=== PATIENT | male | born 1950 | race Caucasian/White ===

== ENCOUNTER 2019-05-30 00:13 | Day surgery (SDC) | payer MEDICARE, SELFPAY ==
[2019-05-17 08:01] VITALS: BP 162/88; PULSE 64; RESP 20; TEMP 36.6; O2SAT 98; BMI 28.7
[2019-05-30] VITALS (12 sets, daily range): BP systolic 123–145; BP diastolic 62–94; PULSE 67–85; RESP 12–20; TEMP 36.3–37.1; O2SAT 93–100
[2019-05-30] MEDS: LACTATED RINGERS 1,000 ML 30 ML IV CONT ×3 (06:35→12:04)
--- NOTE | 2019-05-30 06:57 | P.PNAN_ITS ---
Anes - Initial Pre Proc Eval Procedure: Operation Date: 05/30/19 07:30 Proposed Procedures p Robotic Assisted Radical Retropubic Prostatectomy, Bilateral Pelvic Lymphadenectomy(Bilateral) - Keven Hutchison MD Date/Time: 05/30/19 06:57 Surgeon: Keven Hutchison MD Pre Op Diagnosis: Prostate Ca Patient Data Age: 69 Gender: M Height: 5 ft 11 in Weight: 87.1 kg Last Vital Signs Temp 36.6 C 05/17/19 08:01 Pulse 64 05/17/19 08:01 Resp 20 05/17/19 08:01 BP 162/88 H 05/17/19 08:01 Pulse Ox 98 05/17/19 08:01 Allergies Allergy/AdvReac Type Severity Reaction Status Date / Time Sulfa (Sulfonamide AdvReac Mild Rash Verified 05/30/19 06:24 Antibiotics) tetracycline AdvReac Mild Rash Verified 05/30/19 06:24 Home Medications Medication Instructions Recorded Confirmed Type losartan-hydrochlorothiazide 1 tablet PO DAILY 05/17/19 05/30/19 History omega 3-uel-boj-fish oil [Fish Oil] 2 cap PO DAILY 05/17/19 05/30/19 History simvastatin 10 mg PO HS 05/17/19 05/30/19 History Patient hx anesthesia problems: none Family hx anesthesia problems: none [facility] Past Medical History Medical History (Updated 05/30/19 @ 06:58 by Clinton Heredia MD) Hyperlipidemia Hypertension Prostate CA Recent URI Anes - Eval Final PreProcedure Day of Procedure 05/30/19 06:57 Patient weight: normal Heart: regular rate and rhythm Lungs: clear to auscultation and normal air movement Airway: Mallampati scale class 1 Neurological: alert and oriented Last oral intake: >/= 8 hours ASA classification: III Emergent: no Anesthetic plan: proceed Anesthesia type and monitoring: general ETT and standard monitoring Informed Consent: The patient's anesthetic plan and its attendant risks and benefits were discussed with the patient/family/POA. Questions were solicited and answers provided to the satisfaction of the patient/family/POA.
--- NOTE | 2019-05-30 07:02 | WPDHPUPDATE1 ---
History and Physical Update Update Date/Time: 05/30/19 07:02 History and Physical has been reviewed, including an updated exam of the patient. There are NO changes in the patient's condition. Risks, benefits, and alternatives have been discussed and questions answered. Patient agrees to proceed with procedure.
[2019-05-30] MEDS: ceFAZolin 2 GM/D5W 50 ML 2 GM/50 ML BAG IVPB (07:33)
--- NOTE | 2019-05-30 11:10 | PM.PROC ---
Procedure Note - Detailed Date of procedure: 05/30/19 Pre-op diagnosis: Prostate Ca Post-op diagnosis: same Procedure performed: 1. Bilateral nerve-sparing, robotic-assisted, radical retropubic prostatectomy. 2. Bilataral pelvic lymphadenectomy. Description of procedure: The patient was brought to the operative suite, where he was prepped and draped in routine sterile fashion while in a dorsal lithotomy, deep Trendelenburg position. A supraumbilical 10 mm trocar was placed after insufflation of the abdomen with a Veress needle. Three robotic ports were then placed under direct vision. Two of these were placed in the right lower quadrant - 10 cm and 20 cm lateral to, and in line with, the umbilicus. A third robotic trocar was placed 10 cm to the left of the umbilicus, and 20 cm to the left of the umbilicus, a 12 mm standard laparoscopic trocar was placed to be used as an assistant account manager port. Lastly, a 5 mm trocar was placed in the left upper quadrant midway between the umbilicus and the left robotic trocar. Attention was then turned to the prostatectomy. I opted for a posterior approach in this patient. An incision was made in the parietal peritoneum along the posterior bladder/posterior prostate about 2 cm above the reflection of the peritoneum over the anterior rectum. The seminal vesicles and vas deferens were immediately identified. Dissection is undertaken in a fashion so as to avoid electrocautery as much as possible, particularly near the tips of the seminal vesicles. Dissection was also carried out in the midline so as to avoid any encounters with the ureters. The vas deferens and the seminal vesicles were dissected in their entirety to the base of the prostate. The plane anterior to Denoviller's fascia, anterior to the rectum and posterior to the prostate was then developed. I then dropped the bladder by incising the anterior parietal peritoneum just lateral to the median umbilical ligaments bilaterally. The bladder was dropped from the anterior abdominal and pelvic wall. The endopelvic fascia was identified and incised bilaterally, allowing for dissection of the posterior-lateral aspect of the prostate. The puboprostatic ligaments were transected near their origin from the posterior pubic ramus. This posterior lateral dissection of the prostate is also undertaken in a fashion so as to avoid electrocautery as much as possible. The dorsal vein of the penis is then secured with an 0 -Vicryl ligature. Attention is then turned to the bladder neck. The anterior bladder neck is incised at the vesico-prostatic junction. The previously placed urethral catheter was drawn through the urethrotomy. A very small bladder neck was maintained throughout the remainder of this dissection. The posterior bladder neck was incised in a fashion so as to avoid any injury to the ureteral orifices. Again, the small aperture of the bladder neck was maintained. The previously dissected vas deferens and the seminal vesicles were brought through the posterior bladder neck incision. The lateral prostatic pedicles were then carefully dissected from the lateral aspect of the prostate bilaterally. The prostatic pedicles were secured with Weck clips and transected. The neurovascular bundles were carefully dissected from the posterior-lateral aspect of the prostate. The dorsal vein of the penis was incised with electrocautery. Using cold scissors, the urethra was incised. After withdrawing the previously placed urethral catheter, the posterior urethra was sharply incised, as was the rectalurethralis muscle. Attention was then turned to a bilateral pelvic lymphadenectomy. The limits of this dissection were similar bilaterally. Specifically, the limits were the bifurcation of the common iliac vein proximally, the inguinal ligament distally, the obturator nerve posteriorly and the anterior aspect to the external iliac vein laterally. This dissection was undertaken with care to avoid a
--- NOTE | 2019-05-30 12:11 | SUR.PHASEI ---
1207 updated family room # given. sbar faxed floor notified
--- NOTE | 2019-05-30 12:36 | ADMGEN ---
This patient, Dennis Tavares, was admitted to [facility] Surg Room 332-02. Patient/family oriented to hospital policies and general routines including ID bracelet, bed and alarms, visiting hours, pain management, procedures, bathroom and other care routines, personal items, smoking policy, room service/diet, and visiting hours. Valuables list has been completed. Information on how to activate the Rapid Response Team has been discussed. Patient/Family are encouraged to report perceived risks to care and to ask questions if they do not understand what they are told or what they should do.
[2019-05-30] MEDS: LACTATED RINGERS 1,000 ML 125 ML IV CONT ×2 (13:04→21:17)
[2019-05-30] MEDS: DOCUSATE SODIUM 100 MG CAPSULE PO (17:25)
[2019-05-30] MEDS: SIMVASTATIN 10 MG TABLET PO (21:17)
[2019-05-30] MEDS: GUAIFENESIN 200 MG/10 ML UDC PO (21:18)
[2019-05-30] MEDS: KETOROLAC 15 MG/ML VIAL (*BKC) IV PUSH (21:25)
[2019-05-31 02:00] VITALS: BP 133/59; PULSE 69; RESP 20; TEMP 36.6; O2SAT 98
[2019-05-31] MEDS: LACTATED RINGERS 1,000 ML 125 ML IV CONT (04:42)
[2019-05-31 06:07] LABS: Hematocrit 35.7 % (42.0-52.0); Hemoglobin 11.8 g/dL (14.0-18.0)
[2019-05-31 06:16] LABS: Blood Urea Nitrogen 15 mg/dL (9-20); Calcium 8.5 mg/dL (8.4-10.2); Carbon Dioxide 26 mmol/L (22-30); Chloride 99 mmol/L (98-107); Estimated CRCL calculation 74 ml/min; Estimated Glomerular Filt Rate > 60; Glucose 129 mg/dL (75-110); Potassium 3.3 mmol/L (3.4-5.0); Sodium 133 mmol/L (137-145)
[2019-05-31 06:58] VITALS: BP 141/70; PULSE 76; RESP 20; TEMP 36.6; O2SAT 100
[2019-05-31] MEDS: hydroCHLOROthiazide 12.5 MG CAPSULE PO (08:58)
[2019-05-31] MEDS: LOSARTAN POTASSIUM 100 MG TABLET PO (08:58)
[2019-05-31] MEDS: DOCUSATE SODIUM 100 MG CAPSULE PO (08:59)
[2019-05-31] MEDS: GUAIFENESIN 200 MG/10 ML UDC PO (08:59)
--- NOTE | 2019-05-31 09:49 | WPDUROPN2 ---
Progress Note: A&P Assessment and Plan (1) Prostate CA: Code(s): C61 - Malignant neoplasm of prostate Status: Acute Assessment and Plan: Doing well POD #1 s/p RALP. Ambulating and tolerating diet. Likely home this afternoon. Subjective Subjective Date/Time Seen: 05/31/19 09:49 Comfortable POD #1 RALP. Tolerating diet. Review of Systems Cardiovascular: Cardiovascular: Denies chest pain, Denies lightheadedness, Denies palpitations and Denies dyspnea Respiratory: Respiratory: Denies dyspnea Gastrointestinal: Gastrointestinal: Denies diarrhea, Denies nausea and Denies vomiting Genitourinary: Genitourinary: Denies hematuria and Denies dysuria Endocrine: Endocrine: Denies palpitations Exam Const: General: no acute distress Resp: Effort & Inspection: normal respiratory effort GI: Inspection: non-distended GI Palp: No abdominal tenderness and No Guarding due to palpation present (GI) Auscultation: normal bowel sounds : Male General Exam: Yes normal external exam Urinary Catheter: Urinary Catheter: patent and draining and urine clear Objective Data Vital Signs Vital Signs: Vital Signs - 24 hr 05/30/19 11:10 05/30/19 11:25 05/30/19 11:49 Temperature 36.3 C L Pulse Rate 68 70 70 Respiratory Rate 14 12 12 Blood Pressure 126/94 H 137/74 123/77 Pulse Oximetry 100 100 100 05/30/19 12:05 05/30/19 12:19 05/30/19 12:40 Temperature Pulse Rate 76 71 70 Respiratory Rate 14 12 16 Blood Pressure 125/71 128/72 Pulse Oximetry 97 93 98 05/30/19 12:55 05/30/19 13:25 05/30/19 19:05 Temperature 36.7 C Pulse Rate 67 70 67 Respiratory Rate 16 16 16 Blood Pressure 142/72 H 131/74 142/72 H Pulse Oximetry 100 100 100 05/30/19 22:00 05/30/19 22:59 05/31/19 02:00 Temperature 36.9 C 36.6 C Pulse Rate 72 85 69 Respiratory Rate 20 16 20 Blood Pressure 145/62 H 133/59 L Pulse Oximetry 98 95 98 05/31/19 06:58 Temperature 36.6 C Pulse Rate 76 Respiratory Rate 20 Blood Pressure 141/70 H Pulse Oximetry 100 Intake/Output Intake/Output: Intake & Output 05/28/19 05/29/19 05/30/19 05/31/19 23:59 23:59 23:59 23:59 Intake Total 2530 1900 Output Total 1175 1650 Balance 1355 250 Meds/Results Medications: Active Medications Generic Name Dose Route Start Last Admin Trade Name Freq PRN Reason Stop Dose Admin Diphenhydramine HCl 25 mg 05/30/19 20:40 05/30/19 21:18 Benadryl Cap PO 25 mg HS PRN Administration Itching Docusate Sodium 100 mg 05/30/19 17:00 05/31/19 08:59 Colace Capsule PO 100 mg BID REJI Administration Guaifenesin 200 mg 05/30/19 20:37 05/31/19 08:59 Guaifenesin Liq PO 200 mg Q6HR PRN Administration Cough Hydrochlorothiazide 12.5 mg 05/31/19 09:00 05/31/19 08:58 Hydrochlorothiazide PO 12.5 mg DAILY REJI Administration Hyoscyamine 0.125 mg 05/30/19 12:24 Levsin Tablet SUBLINGUAL Q4H PRN Bladder Spasm Lactated Ringer's 1,000 mls @ 125 mls/hr 05/30/19 12:24 05/31/19 04:42 Lr - Lactated Ringers Iv IV CONT 125 mls/hr .Q8H REJI Administration Acetaminophen 1,000 mg in 100 mls @ 400 mls/hr 05/30/19 12:24 05/31/19 06:09 Ofirmev 1,000 Mg Ivpb IVPB 05/31/19 12:25 Infused Q6HR REJI Infusion Ketorolac Tromethamine 15 mg 05/30/19 12:48 05/30/19 21:25 Toradol Inj IV PUSH 05/31/19 12:49 15 mg Q6H PRN Administration Pain Rated 4-6 Levofloxacin 500 mg 05/31/19 09:00 05/31/19 09:04 Levaquin Tab PO 500 mg DAILY REJI Administration Losartan Potassium 100 mg 05/31/19 09:00 05/31/19 08:58 Cozaar PO 06/30/19 09:01 100 mg DAILY REJI Administration Naloxone HCl 0.1 mg 05/30/19 12:24 Narcan IV PUSH Q2M PRN Opiate Reversal Ondansetron HCl 4 mg 05/30/19 12:24 Zofran Inj IV PUSH Q6H PRN Nausea And Vomiting Simvastatin 10 mg 05/30/19 21:00 05/30/19 21:17 Zocor PO 10 mg HS REJI Administra
--- NOTE | 2019-05-31 09:58 | WPDANESPN ---
Anes - Prog Note Post-Op Date/Time: 05/31/19 09:58 Cardiovascular status: normal Respiratory status: normal Airway patency: baseline Mental status: baseline Post-Op hydration status: normal Vital Signs: Last Vital Signs Temp 36.6 C 05/31/19 06:58 Pulse 76 05/31/19 06:58 Resp 20 05/31/19 06:58 BP 141/70 H 05/31/19 06:58 Pulse Ox 100 05/31/19 06:58 I/O: Intake & Output 05/30/19 05/31/19 05/31/19 23:59 07:59 15:59 Intake Total 2080 1900 Output Total 1000 1650 Balance 1080 250 Laboratory Tests 05/31/19 05:49 05/31/19 05:49 05/31/19 05/31/19 05:49 05:49 Hgb 11.8 L Hct 35.7 L Sodium 133 L Potassium 3.3 L Chloride 99 Carbon Dioxide 26 BUN 15 Creatinine 0.90 Estim Creat Clear Calc 74 Estimated GFR > 60 Glucose 129 H Calcium 8.5 Post-procedural complaints: none Patient Feedback: Patient satisfied with anesthetic care.
--- NOTE | 2019-05-31 13:16 | P.DS_ITS ---
DS: Diagnosis Admitting Diagnosis Admitting Diagnosis: Malignant neoplasm of prostate DS: Summary Time Spent with Patient Time attestation: Total time spent providing and/or coordinating discharge services: 15 min. This patient was admitted on the morning of his planned robotic prostatectomy. This procedure was uneventful, as was his postoperative course. By the evening of the procedure he was sitting at the bedside in tolerating a liquid diet. The following morning he was ambulating freely and tolerating regular food. His catheter drainage remained essentially clear throughout. His postoperative hem oglobin and serum creatinine were unremarkable. At the time of discharge he has been instructed in appropriate care for his Ricks catheter with both a leg bag and bedside bag. He will be discharged with plans to follow-up in 1 week with a cystogram. Exam Const: General: no acute distress Resp: Effort & Inspection: normal respiratory effort GI: Inspection: non-distended GI Palp: No abdominal tenderness and No Guarding due to palpation present (GI) Auscultation: normal bowel sounds DS: Data Data Completed and Pending Pending studies at discharge: Pending at discharge 05/30/19 09:40 Surgical [PTH] Routine Surgical [PTH] Routine Labs on day of discharge: Labs from last 24 hours 05/31/19 05/31/19 05:49 05:49 Hgb 11.8 L Hct 35.7 L Sodium 133 L Potassium 3.3 L Chloride 99 Carbon Dioxide 26 BUN 15 Creatinine 0.90 Estim Creat Clear Calc 74 Estimated GFR > 60 Glucose 129 H Calcium 8.5 Discharge Plan Discharge Patient Disposition: Home, Self-Care Discharge Instructions: 1) Ricks catheter -> leg bag / bedside bag at night. 2) No lifting/straining >15lbs. x3 weeks. 3) No driving x1-week. 4) Resume normal, pre-operative diet. 5) My office will contact regarding follow-up in 1-week with cystogram. Patient Instructions: Retropubic Prostatectomy (DC), Pain Management (DC), Ricks Catheter Placement and Care (DC), MICHAEL Hose (DC), Urinary Leg Bag (GEN) Discharge Orders: Discharge Order (Routine); Ordered 05/31/19 Ordered By: Keven Hutchison Discharge Medications: New hydrocodone-acetaminophen 5-325 mg tablet 1 - 2 tablet PO Q6H PRN (Reason: pain) Qty: 20 RF: 0 hyoscyamine sulfate 0.125 mg tablet 0.125 mg PO Q6H PRN (Reason: bladder spasms) Qty: 20 RF: 2 docusate sodium [Colace] 100 mg capsule 100 mg PO DAILY Qty: 30 RF: 0 levofloxacin [Levaquin] 500 mg tablet 500 mg PO DAILY Qty: 7 RF: 5 Continued losartan-hydrochlorothiazide 100-12.5 mg Tablet 1 tablet PO DAILY RF: 0 Held omega 4-vrx-igz-fish oil [Fish Oil] 1,000 mg (120 mg-180 mg) Capsule 2 cap PO DAILY RF: 0 Hold Instructions: Resume on 06/05/19. No Action simvastatin 10 mg Tablet 10 mg PO HS RF: 0
== END 2019-05-31 13:35 | disposition home or self-care (01) ==
LOC: ANHSURGERY 06:11 → ANH3MEDSUR 05-31 10:06
PROVIDERS: Visit Provider Urology
PROC: 0VT04ZZ Resection of Prostate, Percutaneous Endoscopic Approach (ICD-10-PCS; CPT 55867; principal; 2019-05-30 07:30)
DX: C61 Malignant neoplasm of prostate (principal); I10 Essential (primary) hypertension; E78.5 Hyperlipidemia, unspecified
CPT/HCPCS: 55866; 38571; S2900; 36415; 80048; 85014; 85018; 86850; 86900; 86901; 88305; 88307; A9270; J0131; J0690; J1100; J1170; J1885; J2250; J2370; J2405; J2704; J2710; J3010; J7030; J7120; Q9968

== ENCOUNTER 2019-06-07 13:09 | Outpatient (CLI) | payer MEDICARE, SELFPAY ==
--- NOTE | ~2019-06-07 | XR_ITS ---
EXAMINATION: XR cystogram EXAM DATE: 06/07/2019 15:03 INDICATION: Prostate cancer, prostatectomy TECHNIQUE: Cystogram performed through Ricks catheter in place on patient arrival. Patient tolerated approximately 125 mL of contrast. Dose reduction digital pulsed fluoroscopy was used at 4 frames per second with DAP 9 Gycm2. FINDINGS: Bladder has a normal contour and there is no extravasation. No ureteral reflux was demonst rated. IMPRESSION: Unremarkable cystogram. Reviewed, dictated and finalized at location A. [employer] IMPRESSION: Unremarkable cystogram.
== END 2019-06-07 13:10 | disposition home or self-care (01) ==
PROVIDERS: Visit Provider Urology
DX: C61 Malignant neoplasm of prostate (principal)
CPT/HCPCS: 51600; 74430; Q9967

== ENCOUNTER 2022-11-22 15:53 | Outpatient (CLI) | payer MEDICARE, SELFPAY ==
--- NOTE | ~2022-11-22 | US_ITS ---
EXAMINATION:US venous doppler LE BI INDICATION:Leg edema TECHNIQUE: Multiple grayscale, color flow and Doppler images of the right and left lower extremity de ep venous systems were obtained and reviewed. COMPARISON:No prior studies for comparison. FINDINGS: There is deep venous thrombosis of the left posterior tibial and gastrocnemius veins. The r ight common femoral, superficial femoral and popliteal veins demonstrate normal respiratory variation , augmentation and compressibility. Color flow is also seen within the posterior tibial, peroneal, g reater saphenous and profunda veins. IMPRESSION: 1: Deep venous thrombosis of the left posterior tibial and gastrocnemius veins. Patient's physician will be called by the front office staff with the results. Reviewed, dictated and finalized at location A.
== END 2022-11-22 15:54 | disposition home or self-care (01) ==
DX: C71.9 Malignant neoplasm of brain, unspecified (principal); R60.0 Localized edema; I82.442 Acute embolism and thrombosis of left tibial vein; I82.462 Acute embolism and thrombosis of left calf muscular vein
CPT/HCPCS: 93970

== ENCOUNTER 2022-12-23 15:12 | Outpatient (CLI) | payer MEDICARE, SELFPAY ==
--- NOTE | ~2022-12-23 | US_ITS ---
EXAMINATION: US venous doppler [facility] DATE: 12/23/2022 15:57 INDICATION: Lower limb swelling TECHNIQUE: Gordon scale images without and with compression and Doppler images of the bilateral lower e xtremity veins were obtained. COMPARISON: 11/22/2022 FINDINGS: The right common femoral vein, profunda femoral vein, femoral vein, popliteal vein, peroneal trunk, p osterior tibial veins, and greater saphenous vein are patent. There is thrombosis of the left femoral vein, popliteal vein, and posterior tibial veins. The left co mmon femoral vein, profunda femoral vein, peroneal trunk, and greater saphenous vein are patent. IMPRESSION: 1. Thrombosis of the of the left femoral vein, popliteal vein, and posterior tibial veins. Otherwise patent bilateral lower extremity veins. Reviewed, dictated and finalized at location A. IMPRESSION: 1. Thrombosis of the of the left femoral vein, popliteal vein, and posterior ti bial veins. Otherwise patent bilateral lower extremity veins.
== END 2022-12-23 15:13 | disposition home or self-care (01) ==
PROVIDERS: Visit Provider Internal Medicine
DX: C71.9 Malignant neoplasm of brain, unspecified (principal); R60.0 Localized edema; I82.412 Acute embolism and thrombosis of left femoral vein; I82.432 Acute embolism and thrombosis of left popliteal vein; I82.442 Acute embolism and thrombosis of left tibial vein
CPT/HCPCS: 93970

== ENCOUNTER 2023-01-18 11:59 | Outpatient (CLI) | payer MEDICARE, SELFPAY ==
[2023-01-18 12:46] LABS: Hematocrit 43.1 % (42.0-52.0); Mean Corpuscular HGB Conc 32.5 g/dl (32-36); Mean Corpuscular Hemoglobin 34.2 pg (26-34); Mean Corpuscular Volume 105.4 fl (80-100); Mean Platelet Volume 9.3 fl (7.4-10.4); Platelet Count Result 231 k/mm3 (150-375); Red Blood Count 4.09 M/mm3 (4.6-6.20); Red Cell Distribution Width 14.6 % (11.5-14.5); White Blood Count 7.6 K/mm3 (4.5-10.0)
[2023-01-18 12:56] LABS: Alanine Aminotransferase 77 U/L (6-50); Alkaline Phosphatase 53 U/L (38-126); Anion Gap 5 mmol/L (8-16); Aspartate Amino Transferase 57 U/L (17-59); Bilirubin,Total 0.6 mg/dL (0.2-1.3); Blood Urea Nitrogen 28 mg/dL (9-20); Carbon Dioxide 29 mmol/L (22-30); Chloride 101 mmol/L (98-107); Estimated Glomerular Filt Rate > 60; Glucose 110 mg/dL (65-110); Potassium 3.8 mmol/L (3.4-5.0); Sodium 135 mmol/L (137-145)
[2023-01-18 13:17] LABS: Neutrophils Percent Manual 83 % (46-73); Total Cells Counted 100
[2023-01-18 13:18] LABS: Band Neutrophils Percent 1 % (0-6); Lymphocytes Percent Manual 4 % (18-44); Monocytes Absolute Manual 0.83 K/mm3 (0.1-0.90); Monocytes Percent Manual 11 % (3-9); Neutrophils Absolute Manual 6.38 K/mm3 (1.3-6.7); Platelet Estimate Adequate (Adequate); Promyelocytes Percent 1 %
[2023-01-18 13:19] LABS: Macrocytosis 1+ (NORMAL); Schistocytes None Seen (NORMAL)
== END 2023-01-18 12:00 | disposition home or self-care (01) ==
LOC: ANHLAB 12:02
PROVIDERS: Visit Provider Internal Medicine
DX: C71.9 Malignant neoplasm of brain, unspecified (principal)
CPT/HCPCS: 36415; 80053; 85025

== ENCOUNTER 2023-01-29 09:23 | Emergency (ER) | payer MEDICARE, SELFPAY ==
[2023-01-29] VITALS (10 sets, daily range): BP systolic 157–191; BP diastolic 61–101; PULSE 56–65; RESP 10–20; TEMP 36.7; O2SAT 95–100
--- NOTE | ~2023-01-29 | CT_ITS ---
EXAMINATION: CTA chest PE protocol DATE: 01/29/2023 11:33 INDICATION: Chest pain and heaviness TECHNIQUE: Computed tomography angiography (CTA) of the chest was performed with 100 mL Omnipaque-350 intravenous contrast timed to evaluate the pulmonary arteries. Coronal maximum intensity projection 3D-reconstructions were created by the technologist. The dose-length product (DLP) was 709.93 mGy-cm. Automated exposure control and iterative reconstruction technique were employed. COMPARISON: None. FINDINGS: The pulmonary arteries are well-opacified. There are emboli in subsegmental branches of the bilateral lower lobes and in proximal branches of the left upper lobe. There are small pleural effus ions. There is no pneumothorax. There is mild dependent atelectasis. There is a wedge-shaped opacity of the right lower lobe distal to a lower lobe pulmonary embolus. No pathologically enlarged thoracic lymph nodes are identified. The heart size is normal. There is mild thoracic spondylosis. IMPRESSION: 1. Bilateral acute pulmonary emboli in proximal and segmental branches of the lungs. 2. Wedge-shaped opacity of the right lower lobe distal to a lower lobe pulmonary embolus which could small pulmonary infarct versus pneumonia. These findings were discussed with Attila Thompson PA-C in the Emergency Department at 1220 hours on 01/29/2023. Reviewed, dictated and finalized at location A. IMPRESSION: 1. Bilateral acute pulmonary emboli in proximal and segmental branches of the l ungs. 2. Wedge-shaped opacity of the right lower lobe distal to a lower lobe pulmonar y embolus which could small pulmonary infarct versus pneumonia. These findings were discussed with Attila Thompson PA-C in the Emergency Depart ment at 1220 hours on 01/29/2023.
--- NOTE | ~2023-01-29 | XR_ITS ---
EXAMINATION: XR chest 1V portable INDICATION: Chest pain TECHNIQUE: Portable AP chest at 1006 hours COMPARISON: 05/17/2019 FINDINGS: There are minimal airspace opacities of the right lung base. There is a questionable nodule of the medial right lung base. No pleural effusion or pneumothorax. The heart size is normal. IMPRESSION: 1. Minimal right basilar airspace opacity, consistent with atelectasis versus pneumonia. 2. Possible nodule in the medial right lung base. Follow-up CT of the chest is recommended. Reviewed, dictated and finalized at location F. IMPRESSION: 1. Minimal right basilar airspace opacity, consistent with atelectasis versus p neumonia. 2. Possible nodule in the medial right lung base. Follow-up CT of the chest is recommended.
--- NOTE | 2023-01-29 09:31 | ED.GENADULT ---
HPI - General Adult General Chief complaint: Chest Pain <Attila Thompson PA-C - Last Filed: 01/29/23 17:48> Stated complaint: chest pain <Attila Thompson PA-C - Last Filed: 01/29/23 17:48> Time Seen by Provider: 01/29/23 09:27 <Attila Thompson PA-C - Last Filed: 01/29/23 17:48> Source: patient <LIBORIO Slade Last Filed: 01/29/23 17:48> Mode of arrival: ambulatory <LIBORIO Slade Last Filed: 01/29/23 17:48> Limitations: no limitations <Attila Thompson PA-C - Last Filed: 01/29/23 17:48> History of Present Illness HPI narrative: This is a 73-year-old male with PMH of DVT, PE, prostate cancer, glioblastoma who presents to the ED with chief complaint of chest pressure beginning this morning after waking up a couple of hours ago. Patient reports that he sat up on the edge of the bed and was having chest pressure in the central chest. Denies any sharp pain but describes a heaviness. States pain is minimal. Denies any radiation of pain, vomiting or LOC. Denies shortness of breath, diaphoresis. Patient reports that he was started on Eliquis in August 2022 for DVT and no acute. States he has been taking his Eliquis regularly and has not missed any doses. He is here with his daughter who is supplementing history as well. She reports that they were supposed to go to their entry appointment for hospice today. They are scheduled with hospice of [facility]. <Attila Thompson PA-C - Last Filed: 01/29/23 17:48> Related Data Home medications: Home Medications Medication Instructions Recorded Confirmed losartan 100 1 tablet PO DAILY 05/17/19 05/30/19 mg-hydrochlorothiazide 12.5 mg tablet omega 2-cbv-wrk-fish oil 1,000 mg 2 cap PO DAILY 05/17/19 05/30/19 (120 mg-180 mg) capsule (Fish Oil) simvastatin 10 mg tablet 10 mg PO HS 05/17/19 05/30/19 <LIBORIO Slade Last Filed: 01/29/23 17:48> Allergies/adverse reactions: Allergies Allergy/AdvReac Type Severity Reaction Status Date / Time Sulfa (Sulfonamide AdvReac Mild Rash Verified 05/30/19 06:24 Antibiotics) tetracycline AdvReac Mild Rash Verified 05/30/19 06:24 <Attila Thompson PA-C - Last Filed: 01/29/23 17:48> Review of Systems Review of Systems: All systems as dictated in HPI <Attila Thompson PA-C - Last Filed: 01/29/23 17:48> [facility] Past Medical History Medical History: Medical History (Updated 01/29/23 @ 14:34 by Attila Thompson PA-C) Hyperlipidemia Hypertension Prostate CA Recent URI <Attila Thompson PA-C - Last Filed: 01/29/23 17:48> Social History Social History: Social History Smoking status: Never smoker Alcohol intake: current Drinks per week: 1 Substance use: never Gender identity (if verbalized by the patient): Male Spiritual care concerns: No Agree to blood products: Yes <Attila Thompson PA-C - Last Filed: 01/29/23 17:48> Exam Narrative: GENERAL: Well-appearing, well-nourished, and in no acute distress. HEAD: Normocephalic, atraumatic. EYES: PERRLA and EOMI. ENT: Nares clear, no rhinorrhea or epistaxis. Mucous membranes moist. Oropharynx without tonsillar hypertrophy exudate or other lesions. NECK: Supple. No adenopathy or masses. CHEST: No respiratory distress. Clear to auscultation. No wheezes rales or rhonchi HEART: Regular rate and rhythm. No murmur heard. Normal peripheral pulses. ABDOMEN: Soft, nontender, nondistended, normal active bowel sounds. MSK: Normal range of motion. No edema. SKIN: Warm, dry, no rash. NEURO: Alert and oriented x3. No focal deficits. PSYCH: Normal mood and affect. <Attila Thompson PA-C - Last Filed: 01/29/23 17:48> Course Course Emergency Course: Reevaluation 1430: Patient feeling much better. Reports the chest heaviness is completely gone. He is not having any pain or shortness of breath. Discussed the plan for hospice june
[2023-01-29] MEDS: ASPIRIN 81 MG CHEWABLE TABLET 324 MG PO (09:37)
[2023-01-29 10:09] LABS: Basophils Percent Auto 0.2 % (0.2-1.2); Eosinophils Percent Auto 0.1 % (0-4.4); Hematocrit 38.4 % (42.0-52.0); Hemoglobin 12.5 g/dL (14.0-18.0); Immature Granulocyte Absolute 0.28 K/mm3 (0.00-0.031); Immature Granulocyte Percent A 2.8 % (0-0.5); Lymphocytes Absolute Auto 0.59 K/mm3 (0.9-3.2); Mean Corpuscular HGB Conc 32.6 g/dl (32-36); Mean Corpuscular Volume 104.3 fl (80-100); Mean Platelet Volume 9.7 fl (7.4-10.4); Monocytes Absolute Auto 0.8 K/mm3 (0.1-0.6); Monocytes Percent Auto 8.4 % (2.6-8.5); Neutrophils Absolute Auto 8.1 K/mm3 (1.3-6.7); Neutrophils Percent Auto 82.5 % (45.5-73.1); Platelet Count Result 150 k/mm3 (150-375); Red Blood Count 3.68 M/mm3 (4.6-6.20); Red Cell Distribution Width 14.8 % (11.5-14.5); White Blood Count 9.9 K/mm3 (4.5-10.0)
[2023-01-29 10:21] LABS: Alanine Aminotransferase 65 U/L (6-50); Albumin Level 3.5 g/dL (3.5-5.1); Alkaline Phosphatase 57 U/L (38-126); Anion Gap 2 mmol/L (8-16); Aspartate Amino Transferase 46 U/L (17-59); Bilirubin,Total 0.5 mg/dL (0.2-1.3); Blood Urea Nitrogen 24 mg/dL (9-20); Calcium 8.2 mg/dL (8.4-10.2); Carbon Dioxide 31 mmol/L (22-30); Chloride 103 mmol/L (98-107); Estimated Glomerular Filt Rate > 60; Glucose 92 mg/dL (65-110); Lipase 64 U/L (23-300); Potassium 3.4 mmol/L (3.4-5.0); Sodium 136 mmol/L (137-145)
[2023-01-29 10:23] LABS: INR 0.9; Prothrombin Time 12.2 Seconds (11.1-14.7)
[2023-01-29 10:24] LABS: Partial Thromboplastin Time 21.3 SECONDS (22.3-36.8)
[2023-01-29 10:33] LABS: Troponin I < 0.012 ng/mL (0.000-0.034)
[2023-01-29 13:15] LABS: Troponin I < 0.012 ng/mL (0.000-0.034)
== END 2023-01-29 14:57 | disposition home or self-care (01) ==
PROVIDERS: Emergency Provider Physician Assistant
DX: I26.99 Other pulmonary embolism without acute cor pulmonale (principal); E78.5 Hyperlipidemia, unspecified; I10 Essential (primary) hypertension; Z86.718 Personal history of other venous thrombosis and embolism; Z85.46 Personal history of malignant neoplasm of prostate; Z79.01 Long term (current) use of anticoagulants; R91.8 Other nonspecific abnormal finding of lung field
CPT/HCPCS: 36415; 71045; 71275; 80053; 83690; 84484; 85025; 85610; 85730; 99284; A9270; Q9967